=== PATIENT | male | born 1970 | race African-American/Black ===

== ENCOUNTER → 2019-05-11 | Outpatient (CLI) | payer OTHER ==
--- NOTE | 2019-05-12 12:14 | REP ---
MRI ANKLE WITHOUT CONTRAST: 05/11/2019. Clinical history: Left Achilles tendon rupture. Technique: Coronal fat suppressed T2, axial T1/fat suppressed T2 and sagittal T1, T2 STIR. Findings: No prior study. The Achilles tendon is abnormal thickened up to 13 mm in AP diameter at 0.4 cm above its insertion. There is abnormal increased signal within the tendon. This is seen on T2 images with findings consistent with chronic tears but no complete rupture identified. The PT, FDL, FHL, PD/PL, AT, EDL and EHL tendons were all intact. The talar joints are preserved. The mortise joint is symmetric and without talar dome osteochondral defect. There is no fracture or marrow edema in the distal tibia and fibula. Third ligament intact. Anterior tibiofibular ligament was intact. Some mild strain of the anterior talofibular ligaments and posterior talofibular ligament shows some strain; calcaneofibular ligament with mild strain. No tear. Small amount of fluid anterior to the anterior talofibular ligament at the joint. Impression: 1. Chronic Achilles tendon injury with marked thickening of the tendon up to 13 mm in AP diameter and abnormal increased T2 signal consistent with a chronic intrasubstance tears. No complete rupture. Maximum thickness 13 mm about 4.5 cm above its insertion. 2. Some mild strain anterior posterior talofibular ligaments and minimally of the calcaneofibular ligament. 3. The other anterior and posterior tendons about the ankles were unremarkable. 4. Mortise joint was preserved. No bone bruise or fracture. Electronically Signed by Luiz Donovan MD 05/12/2019 08:31 P
== END ==
LOC: M RAD 14:33
PROVIDERS: ATTEND Podiatrist Foot & Ankle Surgery
DX: S86.012A Strain of left Achilles tendon, initial encounter (principal); X58.XXXA Exposure to other specified factors, initial encounter; Y92.89 Other specified places as the place of occurrence of the external cause; Y99.9 Unspecified external cause status; Y93.9 Activity, unspecified

== ENCOUNTER 2019-06-26 08:29 | Day surgery (SDC) | payer OTHER ==
[~2019-06-26] VITALS: Ht 170.2 cm; Wt 96.6 kg
[~2019-06-26 08:29] MED LIST: AMLO5TAB6 PO; CETI10CH PO; LIDOCAINE 1% MDV 20ML VIAL SQ PRN; LR 1,000 ML IV ONE; MULTCAP PO; OMEGCAP9 PO; [UNRECOGNIZED DRUG - OTHER]; ceFAZolin SOD 2 GM in IV 1 EA IV ONE
[2019-06-26] MEDS ORDERED: LIDOCAINE 2% INJ 100 MG/5 ML SDV (FOR ANES.) As Ordered ONE (08:56)
[2019-06-26] MEDS ORDERED: propofoL 200 MG/20 ML VIAL As Ordered ONE ×2 (08:56→11:32)
[2019-06-26] MEDS ORDERED: KETOROLAC 60 MG/2 ML VIAL (J1885) As Ordered ONE (08:58)
[2019-06-26] MEDS ORDERED: dexameTHASONE 4 MG/ML 1ML VIAL (J1100) As Ordered ONE (08:58)
[2019-06-26] MEDS ORDERED: ONDANSETRON 4MG/2ML VIAL (J2405) As Ordered ONE (08:58)
[2019-06-26] MEDS ORDERED: MIDAZOLAM INJ 2 MG/2 ML VIAL (J2250) As Ordered ONE (09:00)
[2019-06-26] MEDS ORDERED: fentaNYL 100 MCG/2 ML INJECTION (J3010) As Ordered ONE (09:00)
[2019-06-26] MEDS ORDERED: LIDOCAINE 1% MDV 20ML VIAL As Ordered ONE (09:11)
[2019-06-26] MEDS ORDERED: BUPIVACAINE HCL 0.5% 30 ML VIAL As Ordered ONE (09:11)
[2019-06-26] MEDS ORDERED: HYDR-3713 PO (11:22)
[2019-06-26 11:45] VITALS: BP 132/91
[2019-06-26] MEDS ORDERED: fentaNYL 100 MCG/2 ML INJECTION (J3010) IV PRN (12:00)
[2019-06-26] MEDS ORDERED: METOCLOPRAMIDE INJ 10MG/2ML VIAL (J2765) IV PRN (12:00)
[2019-06-26] MEDS ORDERED: LR 1,000 ML IV SCH (12:00)
[2019-06-26] MEDS ORDERED: oxyCODONE 5MG TAB PO PRN (12:00)
[2019-06-26] MEDS ORDERED: ONDANSETRON 4MG/2ML VIAL (J2405) IV PRN (12:00)
--- NOTE | 2019-06-26 12:01 | RO ---
DATE OF SURGERY: 06/26/2019 SURGEON: Swapnil Knapp DPM [employer]ANTING SUPERVISOR: None. PREOPERATIVE DIAGNOSIS: Left foot chronic Achilles tendinosis. POSTOPERATIVE DIAGNOSIS: Left foot chronic Achilles tendinosis. PROCEDURE: Left foot radiofrequency ablation of Achilles (Davenport procedure). ANESTHESIA: Monitored anesthesia care (MAC) with preoperative injection of 10 mL of 1:1 mixture of 1% lidocaine plain and 0.5% Marcaine plain. ESTIMATED BLOOD LOSS: Minimal. MATERIALS: None. COMPLICATIONS: None. CONDITION: Stable. Lukas German is a 49-year-old male who has chronic left Achilles tendinitis. He had an injury approximately a decade ago which caused tearing of his Achilles tendon. He has persisting pain at this site despite numerous conservative treatments. He presents today for surgical correction. The patient's site and side were identified and marked in the preop holding area. Consent was reviewed and obtained. All risks, complications and alternatives to the procedure were discussed with the patient in detail. All questions were answered. PROCEDURE: Patient was brought to the operating room and placed on the operating room table in prone position. Monitored anesthesia care was delivered by the anesthesia team. Preop injection of 10 mL of 1:1 mixture of 1% lidocaine plain and 0.5% Marcaine plain were injected to the left calf. A calf tourniquet was applied and then inflated at 225 mmHg. The foot and leg were prepped and draped in a normal sterile fashion. A grid was made over the Achilles tendon at the area of pain. Using a 62 K-wire, percutaneous skin incisions were made, approximately 6 mm apart. Following this, the Davenport wand size 1.06 mm were inserted to each hole of the grid and the radiofrequency ablation was performed at each site. Following this, sterile dressings were applied, tourniquet was deflated and the patient brought to the postanesthesia care unit (PACU) with vital signs stable and neurovascular status intact. He will be non-weightbearing in a posterior splint. He will followup in the office in two days.
== END 2019-06-26 12:14 | disposition home or self-care (01) ==
LOC: M SDC 08:29
PROVIDERS: ATTEND Podiatrist Foot & Ankle Surgery
DX: M76.62 Achilles tendinitis, left leg (principal); I10 Essential (primary) hypertension; R06.83 Snoring; J30.89 Other allergic rhinitis; Z88.2 Allergy status to sulfonamides; Z79.899 Other long term (current) drug therapy
CPT/HCPCS: 27606; 97116; J0690; J1100; J1885; J2250; J2405; J3010